=== PATIENT | male | born 1955 | race Caucasian/White ===

== ENCOUNTER 2024-02-03 16:05 | Inpatient (IN) | payer MEDICARE ==
[2024-02-03] MEDS ORDERED: Moisturizing Cream (Eucerin) 113 GM JAR TOP PRN (16:38)
[2024-02-03] MEDS ORDERED: Acetaminophen 650 MG Suppository PR PRN (16:38)
[2024-02-03] MEDS ORDERED: Artificial Tear Ophth Sol 15 ML BOT EA EYE PRN (16:38)
[2024-02-03] MEDS ORDERED: Labetalol HCl 100 MG/20 ML VIAL SLOW IVP PRN (16:38)
[2024-02-03] MEDS ORDERED: Bisacodyl 5 MG TAB PO PRN (16:38)
[2024-02-03] MEDS ORDERED: Senokot S 8.6-50 MG TAB PO PRN (16:38)
[2024-02-03] MEDS ORDERED: hydrALAZINE 20 MG/ML VIAL SLOW IVP PRN (16:38)
[2024-02-03] MEDS ORDERED: Electrolyte Replacement Protocol 1 EACH FS SCH (16:45)
[2024-02-03 17:09] VITALS: BMI 26.5
[2024-02-03 17:15] LABS: Anion Gap 16 mmol/L (10-20); BUN (Urea Nitrogen) 18 mg/dL (8.4-25.7); Calc. Creatinine Clearance 79 mL/min (70-130); Calcium 8.7 mg/dL (7.8-10.44); Carbon Dioxide 18 mmol/L (23-31); Chloride 108 mmol/L (98-107); Estimated GFR 95; Glucose 113 mg/dL (80-115); Magnesium 1.1 mg/dL (1.6-2.6); Potassium 3.1 mmol/L (3.5-5.1); Sodium 139 mmol/L (136-145)
[2024-02-03] MEDS: ALPRAZolam 0.25 MG TAB PO PRN (18:43)
[2024-02-03] MEDS: Pantoprazole 40 MG VIAL IVP SCH (19:36)
[2024-02-03] MEDS: Magnesium 2 GM/50 ML(in water) 2 GM in Premix 1 BAG IVPB SCH (20:42)
[2024-02-03] MEDS: Acetaminophen 325 MG TAB PO PRN (20:43)
[2024-02-03] MEDS: Atorvastatin Calcium 40 MG TAB PO SCH (20:43)
[2024-02-03] MEDS: Potassium Chloride 20 MEQ TAB PO SCH (20:44)
[2024-02-03] MEDS ORDERED: Famotidine 20 MG TAB PO SCH (21:00)
[2024-02-03] MEDS: diphenhydrAMINE 12.5 MG/5 ML UDCUP PO SCH (23:17)
[2024-02-04 04:13] LABS: #Basophils 0.02 10x3/uL (0.0-0.2); #Eosinphils 0.18 10x3/uL (0.0-0.5); #Monocytes 0.49 10x3/uL (0.0-1.1); #Neutrophils 2.43 10x3/uL (1.5-8.4); %Basophils 0.5 % (0.0-2.0); %Eosinophils 4.4 % (0.0-6.0); %Lymphocytes 22.7 % (18.0-47.0); %Monocytes 12.1 % (0.0-10.0); %Neutrophils 59.8 % (40.0-75.0); Hemoglobin 10.6 g/dL (13.5-17.5); Mean Corpuscular HGB CONC 35.3 g/dL (32.0-36.0); Mean Corpuscular Hemoglobin 33.9 pg (27.0-33.0); Mean Corpuscular Volume 95.8 fL (81.2-95.1); Mean Platelet Volume 9.6 fL (7.4-10.4); Platelet Count 261 10x3/uL (150-450); RBC Distribution Width 12.7 % (11.5-14.5); Red Blood Cell (RBC) Count 3.13 10x6/uL (4.32-5.72); White Blood Cell (WBC) Count 4.1 10x3/uL (3.5-10.5)
[2024-02-04 04:27] LABS: Anion Gap 14 mmol/L (10-20); BUN (Urea Nitrogen) 12 mg/dL (8.4-25.7); Calc. Creatinine Clearance 85 mL/min (70-130); Calcium 8.6 mg/dL (7.8-10.44); Carbon Dioxide 21 mmol/L (23-31); Cardiac Risk 3.5 (Less than 4.5); Chloride 110 mmol/L (98-107); Cholesterol 137 mg/dl (< 200 Desired); Estimated GFR 97; Glucose 91 mg/dL (80-115); HDL Cholesterol 39 mg/dL (>60 Neg Risk); LDL Cholesterol, Calculated 80 mg/dL; Magnesium 2.1 mg/dL (1.6-2.6); Potassium 3.7 mmol/L (3.5-5.1); Sodium 141 mmol/L (136-145); Triglycerides 91 mg/dL (Less than 150)
[2024-02-04] MEDS: Levothyroxine Sodium 50 MCG TAB PO SCH (08:40)
[2024-02-04] MEDS: Pantoprazole 40 MG VIAL IVP SCH (08:40)
[2024-02-04] MEDS: Enoxaparin 40 MG (0.4 mL) SYRINGE SC SCH (08:40)
[2024-02-04] MEDS: Folic Acid 1 MG TAB PO SCH (08:40)
[2024-02-04] MEDS: Aspirin 81 mg Enteric Coated Tablet PO SCH (08:40)
[2024-02-04] MEDS: NIFEdipine XL 60 MG ER.TAB PO SCH (08:42)
[2024-02-04] MEDS: buPROPion 75 MG TAB PO SCH (08:44)
[2024-02-04 11:01] VITALS: BMI 26.5
[2024-02-04] MEDS ORDERED: Eucerin (Mineral Oil/Petrolatum,White) 30 gm Jar TOP PRN (16:00)
[2024-02-04] MEDS: Ondansetron ODT 4 MG TAB PO PRN (17:50)
[2024-02-04 19:23] LABS: Hematocrit 30.6 % (38.8-50.0); Hemoglobin 10.6 g/dL (13.5-17.5); Platelet Count 253 10x3/uL (150-450)
[2024-02-04] MEDS: GoLYTELY 4,000 ml Bottle PO SCH (20:46)
[2024-02-05 04:06] LABS: Anion Gap 15 mmol/L (10-20); BUN (Urea Nitrogen) 12 mg/dL (8.4-25.7); Calc. Creatinine Clearance 90 mL/min (70-130); Calcium 8.9 mg/dL (7.8-10.44); Carbon Dioxide 21 mmol/L (23-31); Chloride 105 mmol/L (98-107); Estimated GFR 98; Glucose 98 mg/dL (80-115); Potassium 3.4 mmol/L (3.5-5.1); Sodium 138 mmol/L (136-145)
[2024-02-05] MEDS: Potassium Chloride 20 MEQ TAB PO SCH (08:43)
[2024-02-05 10:13] LABS: #Basophils 0.03 10x3/uL (0.0-0.2); #Eosinphils 0.09 10x3/uL (0.0-0.5); #Monocytes 0.81 10x3/uL (0.0-1.1); #Neutrophils 6.98 10x3/uL (1.5-8.4); %Basophils 0.3 % (0.0-2.0); %Lymphocytes 10.7 % (18.0-47.0); %Monocytes 9.1 % (0.0-10.0); %Neutrophils 78.7 % (40.0-75.0); Hematocrit 30.5 % (38.8-50.0); Hemoglobin 10.8 g/dL (13.5-17.5); Mean Corpuscular HGB CONC 35.4 g/dL (32.0-36.0); Mean Corpuscular Hemoglobin 33.6 pg (27.0-33.0); Mean Platelet Volume 10.4 fL (7.4-10.4); Platelet Count 268 10x3/uL (150-450); RBC Distribution Width 12.7 % (11.5-14.5); Red Blood Cell (RBC) Count 3.21 10x6/uL (4.32-5.72); White Blood Cell (WBC) Count 8.9 10x3/uL (3.5-10.5)
[2024-02-05] MEDS ORDERED: Rocuronium Bromide 10 MG/ML (10ML VIAL) ONE (13:12)
[2024-02-05] MEDS ORDERED: Lidocaine 2% MPF 10 ML AMP (For Epidural Use) ONE (13:12)
[2024-02-05] MEDS ORDERED: PROPOFOL 20 ML ONE ×3 (13:13→15:01)
[2024-02-05] MEDS ORDERED: PROPOFOL 60 ML ONE (15:11)
[2024-02-05 19:24] LABS: #Basophils 0.03 10x3/uL (0.0-0.2); #Eosinphils 0.21 10x3/uL (0.0-0.5); #Neutrophils 6.06 10x3/uL (1.5-8.4); %Basophils 0.4 % (0.0-2.0); %Eosinophils 2.5 % (0.0-6.0); %Lymphocytes 15.2 % (18.0-47.0); %Monocytes 9.5 % (0.0-10.0); %Neutrophils 71.8 % (40.0-75.0); Hematocrit 35.2 % (38.8-50.0); Hemoglobin 12.4 g/dL (13.5-17.5); Mean Corpuscular HGB CONC 35.2 g/dL (32.0-36.0); Mean Corpuscular Hemoglobin 33.6 pg (27.0-33.0); Mean Corpuscular Volume 95.4 fL (81.2-95.1); Mean Platelet Volume 9.5 fL (7.4-10.4); Platelet Count 272 10x3/uL (150-450); RBC Distribution Width 12.9 % (11.5-14.5); Red Blood Cell (RBC) Count 3.69 10x6/uL (4.32-5.72); White Blood Cell (WBC) Count 8.4 10x3/uL (3.5-10.5)
[2024-02-05] MEDS: Metoprolol Tartrate 25 MG TAB PO SCH (20:55)
[2024-02-05] MEDS: traZODone HCl 150 MG TAB PO PRN (21:03)
[2024-02-06 04:13] LABS: #Basophils 0.03 10x3/uL (0.0-0.2); #Eosinphils 0.19 10x3/uL (0.0-0.5); #Monocytes 0.65 10x3/uL (0.0-1.1); #Neutrophils 4.28 10x3/uL (1.5-8.4); %Basophils 0.5 % (0.0-2.0); %Eosinophils 3.2 % (0.0-6.0); %Monocytes 10.8 % (0.0-10.0); Hematocrit 33.1 % (38.8-50.0); Hemoglobin 11.4 g/dL (13.5-17.5); Mean Corpuscular HGB CONC 34.4 g/dL (32.0-36.0); Mean Corpuscular Volume 95.9 fL (81.2-95.1); Mean Platelet Volume 9.7 fL (7.4-10.4); Platelet Count 257 10x3/uL (150-450); Red Blood Cell (RBC) Count 3.45 10x6/uL (4.32-5.72)
[2024-02-06 04:26] LABS: Anion Gap 15 mmol/L (10-20); BUN (Urea Nitrogen) 9 mg/dL (8.4-25.7); Calc. Creatinine Clearance 100 mL/min (70-130); Calcium 9.3 mg/dL (7.8-10.44); Carbon Dioxide 22 mmol/L (23-31); Chloride 108 mmol/L (98-107); Estimated GFR 101; Glucose 95 mg/dL (80-115); Potassium 3.8 mmol/L (3.5-5.1); Sodium 141 mmol/L (136-145)
[2024-02-06] MEDS: Pantoprazole DR 40 MG TAB PO SCH (08:35)
[2024-02-06] MEDS: Artificial Tear Ophth Sol 15 ML BOT EA EYE PRN (08:36)
[2024-02-06 11:16] VITALS: BP 130/77
[2024-02-06 11:32] VITALS: TEMP 97.7
== END 2024-02-06 16:00 | DRG 393 ==
LOC: CSHTELE 16:20 → OBSVTOIN 02-04 11:38
PROVIDERS: ADMIT Family Medicine; ATTEND Family Medicine
PROC: 0DJ08ZZ Inspection of Upper Intestinal Tract, Via Natural or Artificial Opening Endoscopic (ICD-10-PCS; principal; 2024-02-05)
PROC: 0DBN8ZZ Excision of Sigmoid Colon, Via Natural or Artificial Opening Endoscopic (ICD-10-PCS; 2024-02-05)
DX: K62.7 Radiation proctitis (principal); K22.11 Ulcer of esophagus with bleeding; K57.31 Diverticulosis of large intestine without perforation or abscess with bleeding; D62 Acute posthemorrhagic anemia; R29.6 Repeated falls; E03.9 Hypothyroidism, unspecified; I10 Essential (primary) hypertension; K44.9 Diaphragmatic hernia without obstruction or gangrene; K63.5 Polyp of colon; Z85.46 Personal history of malignant neoplasm of prostate; Z98.890 Other specified postprocedural states
CPT/HCPCS: 36415; 70551; 74176; 80048; 80061; 82550; 82607; 83036; 83735; 84100; 85025; 93306; 93880; 94760; C9113; J1650; J2704; J3475; Q0162; Q0163